=== PATIENT | male | born 1995 | race Caucasian/White ===

== ENCOUNTER 2021-06-09 16:37 | Outpatient (CLI) | payer BC | END 2021-06-09 16:38 | disposition critical access hospital (66) | LOC: EMS 16:37 | DX: R42 Dizziness and giddiness (principal); F41.9 Anxiety disorder, unspecified; R20.0 Anesthesia of skin; R20.2 Paresthesia of skin; R25.2 Cramp and spasm | CPT/HCPCS: A0425; A0429 ==

== ENCOUNTER 2021-06-09 17:13 | Emergency (ER) | payer BC ==
--- NOTE | 2021-06-09 17:18 | ED Physician Documentation ---
History of Present Illness - Stated complaint Stated Complaint: EXHAUSTION - History obtained from History obtained from: Patient - Additonal information Additional information: 25-year-old gentleman was running [place] the [employer] road race and after finishing felt weak and dizzy and then developed what sounds like a panic attack with carpopedal spasms and hyperventilation. He is feeling mostly better now, still little tingly. He was not hyperthermic. He has a history of panic attacks in the past which were similar. Review of Systems Ten Systems: 10 systems reviewed and negative Constitutional: denies: Fever, Chills Ears: reports: Reviewed and negative Nose: reports: Reviewed and negative Cardiac: reports: Reviewed and negative Respiratory: reports: Reviewed and negative PD PAST MEDICAL HISTORY - Present Medications Home Medications: Ambulatory Orders Medication Instructions Recorded Confirmed No Known Home Medications 06/09/21 06/09/21 - Allergies Allergies/Adverse Reactions: Allergies Allergy/AdvReac Type Severity Reaction Status Date / Time No Known Drug Allergies Allergy Verified 06/09/21 17:21 PD ED PE NORMAL - Vitals Vital signs reviewed: Yes - General General: Alert and oriented X 3, No acute distress - HEENT HEENT: PERRL, EOMI - Neck Neck: Supple, no meningeal sign, No bony TTP - Cardiac Cardiac: RRR, No murmur - Respiratory Respiratory: No respiratory distress, Clear bilaterally - Abdomen Abdomen: Non tender - Back Back: No CVA TTP, No spinal TTP - Derm Derm: Normal color, Warm and dry - Extremities Extremities: No edema, No calf tenderness / cord - Neuro Neuro: Alert and oriented X 3, Normal speech Results - Vitals Vitals: Vital Signs - 24 hr 06/09/21 17:18 Temperature 36.7 C Heart Rate 75 Respiratory 18 Rate Blood Pressure 121/81 H O2 Saturation 100 Oxygen O2 Source Room air PD MEDICAL DECISION MAKING - ED course ED course: We offered IV fluids and potentially an anxiolytic, he says he is already feeling better and declined. We will observe him for a bit but seems more like mild dehydration and panic attack than heat exhaustion or something more serious. Departure - Departure Disposition: 01 Home, Self Care Clinical Impression: Hyperventilation syndrome Condition: Good Record reviewed to determine appropriate education?: Yes Instructions: ED Panic Attack Comments: Return for new or worsening symptoms, follow-up with your doctor, next available appointment, drink plenty of fluids.
[2021-06-09 17:21] VITALS: BP 121/81
== END 2021-06-09 18:10 | disposition home or self-care (01) ==
LOC: ED 17:13
DX: F45.8 Other somatoform disorders (principal); F41.0 Panic disorder [episodic paroxysmal anxiety]; E86.0 Dehydration; R53.1 Weakness
CPT/HCPCS: 99282; 99283